=== PATIENT | female | born 1985 | race Hispanic/Latino ===

== ENCOUNTER 2016-06-21 09:24 | Emergency (ER) | payer MEDICAID, OTHER ==
--- NOTE | 2016-06-21 14:41 | Emergency Department Report ---
HPI - General Chief Complaint: Extremity Injury, Upper Time Seen by Provider: 06/21/16 14:41 - HPI HPI: Patient is a 31-year-old female who presents to ED complaining of throbbing/ aching/soreness type 6 out of 10 intensity, located to the right arm and shoulder area. Patient states she released her two-year old child with hand all the time. Patient denies any fall or trauma to the arm. Patient has full range of motion on right arm and neck. Patient denies fevers/chills/nausea/vomiting as chest pain/shortness of breath or dizziness or any other problems area and ED Past Medical Hx - Past Medical History Previous Medical History?: Yes Hx Hypertension: No Hx Congestive Heart Failure: No Hx Diabetes: No Hx Deep Vein Thrombosis: No Hx Renal Disease: No Hx Sickle Cell Disease: No Hx Seizures: No Hx Asthma: No Hx COPD: No Hx HIV: No Additional medical history: Anemia - Surgical History Past Surgical History?: Yes Additional Surgical History: C-sections X2, tonsils removed - Social History Smoking Status: Never Smoker Substance Use Type: None - Medications Home Medications: Home Medications Medication Instructions Recorded Confirmed Last Taken Type Ibuprofen [Motrin] 800 mg PO Q8HR PRN #30 tablet 06/21/16 Unknown Rx methOCARBAMOL [Robaxin TAB] 500 mg PO BID #16 tab 06/21/16 Unknown Rx ED Review of Systems ROS: Stated complaint: RUNNY NOSE/ARM PAIN Other details as noted in HPI Constitutional: denies: chills, fever Eyes: denies: eye pain, eye discharge, vision change ENT: denies: ear pain, throat pain Respiratory: denies: cough, shortness of breath, wheezing Cardiovascular: denies: chest pain, palpitations Endocrine: no symptoms reported Gastrointestinal: denies: abdominal pain, nausea, diarrhea Genitourinary: denies: urgency, dysuria, discharge Musculoskeletal: myalgia. denies: back pain, joint swelling, arthralgia Skin: denies: rash, lesions Neurological: denies: headache, weakness, paresthesias Psychiatric: denies: anxiety, depression Hematological/Lymphatic: denies: easy bleeding, easy bruising Physical Exam - Physical Exam Vital Signs: Vital Signs 06/21/16 09:39 Temperature 98.7 F Respiratory 22 Rate Blood Pressure 155/98 O2 Sat by Pulse 98 Oximetry Physical Exam: GENERAL: Alert and oriented x3, no apparent distress, Normal Gait, atraumatic. HEAD: Head is normocephalic and a-traumatic. EYES: Extra ocular muscles are intact. Pupils are equal, round, and reactive to light and accommodation. EARS: symetrical, atraumatic, non tender, ear canal clear and moderate cerumen, tympanic membrance non inflamed. gross auditory nml bilaterally. NOSE: Nose symetrical, Nontender,Nares appeared normal. MOUTH:Mouth is well hydrated and without lesions. Tonsils nonerythematous or swollen, Uvula midline, Tongue not elevated. Mucous membranes are moist. Posterior pharynx clear, no exudate or lesions. Patent airways. NECK: Supple. Non edematous, No carotid bruits. No lymphadenopathy or thyromegaly. Full ROM LUNGS: Symetrical with respiration, No wheezing, no rales or crackles, CTAB. HEART: S1, S2 present, regular rate and rhythm without murmur, no rubs, no gallops. ABDOMEN: No organomegaly was noted,Positive bowel sounds, soft, and non- distended. . Nontender to palpation on all Quadrants, NO CVA tenderness. EXTREMITIES/MUSCULOSKELETAL: No cyanosis, clubbing, rash, lesions or edema. Full ROM bilaterally. UE/LE Pulses 2+ bilaterally. LE and UE 5+ strength bilaterally. Tenderness to palpation of trapezius muscle. NEUROLOGIC: No focal Deficit, Cranial nerves II through XII are grossly intact. No loss of sensation, No facial droop, SKIN: Warm and dry, No lesions, No ulceration or induration present. ED Course Vital Signs 06/21/16 09:39 Temperature 98.7 F Respiratory 22 Rate Blood Pressure 155/98 O2 Sat by Pulse 98 Oximetry Critical care attestation.: If time is entered above; I have spent that time in minutes in the direct care of this critically ill patient, excluding procedure time. ED Disposition Clinical Impression: Myalgia, Strain of upper arm, right Disposition: DISCHARGED TO HOME OR SELFCARE Is pt being admited?: No Does the pt Need Aspirin: No Condition: Stable Instructions: Muscle Strain (ED), Heat Pack Application (ED) Prescriptions: Ibuprofen [Motrin] 800 mg PO Q8HR PRN #30 tablet PRN Reason: Pain methOCARBAMOL [Robaxin TAB] 500 mg PO BID #16 tab Referrals: PRIMARY CARE, [Primary Care Provider] - 3-5 Days [facility] [place]Note 3] [Outside] - 3-5 Days [facility] [Outside] - 3-5 Days [facility] [Outside] - 3-5 Days [facility] [Outside] - 3-5 Days Forms: Work/School Release Form(ED) Time of Disposition: 15:47
[2016-06-21] MEDS ORDERED: XYLOCAINE 1% MPF 5 mL INFILTRATI ONE (15:18)
[2016-06-21] MEDS ORDERED: ROCEPHIN IV ONE (15:18)
[2016-06-21 16:20] VITALS: BP 158/86
== END 2016-06-21 15:49 | disposition home or self-care (01) ==
LOC: ED 09:24
DX: S46.811A Strain of other muscles, fascia and tendons at shoulder and upper arm level, right arm, initial encounter (principal); D64.9 Anemia, unspecified; X58.XXXA Exposure to other specified factors, initial encounter; Y93.89 Activity, other specified; Y92.89 Other specified places as the place of occurrence of the external cause; Y99.8 Other external cause status
CPT/HCPCS: 99282

== ENCOUNTER 2017-07-24 15:46 | Emergency (ER) | payer SELFPAY ==
[2017-07-24 16:48] LABS: Basophils % (Auto) 0.2 % (0.0-1.8); Eosinophils # (Auto) 0.1 K/mm3 (0.0-0.4); Eosinophils % (Auto) 0.7 % (0.0-4.3); Hematocrit 38.5 % (30.3-42.9); Hemoglobin 12.7 gm/dl (10.1-14.3); Lymphocytes # (Auto) 1.4 K/mm3 (1.2-5.4); Mean Corpuscular HGB Conc 33 % (30-34); Mean Corpuscular Hemoglobin 27 pg (28-32); Mean Corpuscular Volume 81 fl (79-97); Monocytes # (Auto) 0.9 K/mm3 (0.0-0.8); Monocytes % (Auto) 9.2 % (0.0-7.3); Platelet Count 189 K/mm3 (140-440); Red Blood Count 4.76 M/mm3 (3.65-5.03); Red Cell Distribution Width 16.7 % (13.2-15.2)
[2017-07-24 17:02] LABS: Alanine Aminotransferase 15 units/L (7-56); Albumin 3.9 g/dL (3.9-5); BUN/Creatinine Ratio 11; Blood Urea Nitrogen 9 mg/dL (7-17); Calcium 8.8 mg/dL (8.4-10.2); Hemolysis Index 9; Lipase 22 units/L (13-60)
[2017-07-24 17:14] LABS: Bacteria,Urine 3+ /HPF (Negative); Bilirubin,Urine NEG (Negative); Blood,Urine NEG (Negative); Color,Urine Yellow (Yellow); Mucus,Urine FEW /HPF; Nitrite,Urine NEG (Negative); Protein,Urine <15 mg/dL mg/dL (Negative)
--- NOTE | 2017-07-24 23:24 | Emergency Department Report ---
HPI - General Chief Complaint: Abdominal Pain Time Seen by Provider: 07/24/17 23:00 - HPI HPI: Room 7 (1 of 3) The patient is a 32-year-old female presenting with chief complaint of abdominal pain and diarrhea. The patient states for the past 5 days she's had intermittent cramping and throbbing diffuse abdominal pain. The patient states for the past 2 days she has exhibited watery diarrhea in addition to chills. Patient denies any recent antibiotic use. Patient denies nausea/vomiting or fever. The patient is here with 2 other children who have the same symptoms. The patient's symptoms began first Location: Abdomen Duration: 5 days Quality: Cramping Severity: Moderate Modifying factors: [see above] Context: [see above] Mode of transportation: [not driving] ED Past Medical Hx - Past Medical History Previous Medical History?: Yes Additional medical history: Anemia, Vaginal delivery - Surgical History Past Surgical History?: Yes Additional Surgical History: C-sections X2, tonsils removed - Family History Family history: no significant - Social History Smoking Status: Current Some Day Smoker Substance Use Type: None - Medications Home Medications: Home Medications Medication Instructions Recorded Confirmed Last Taken Type Ibuprofen [Motrin] 800 mg PO Q8HR PRN #30 tablet 06/21/16 Unknown Rx methOCARBAMOL [Robaxin TAB] 500 mg PO BID #16 tab 06/21/16 Unknown Rx Ciprofloxacin HCl [Ciprofloxacin 500 mg PO BID #14 tablet 07/24/17 Unknown Rx TAB] Dicyclomine [Bentyl] 10 mg PO QID #20 capsule 07/24/17 Unknown Rx Diphenoxylate/Atropine [Lomotil] 2 tab PO QID PRN #20 tablet 07/24/17 Unknown Rx HYDROcodone/APAP 5-325 [[place] 1 - 2 each PO Q6HR PRN #14 tablet 07/24/17 Unknown Rx 5/325] ED Review of Systems ROS: Stated complaint: ABD PAIN Other details as noted in HPI Constitutional: chills. denies: fever Gastrointestinal: abdominal pain, diarrhea. denies: nausea, vomiting Physical Exam - Physical Exam Vital Signs: Vital Signs 07/24/17 16:17 Temperature 97.7 F Pulse Rate 111 H Respiratory 20 Rate Blood Pressure 123/87 O2 Sat by Pulse 99 Oximetry Vital Signs 07/24/17 07/24/17 16:17 23:44 Temperature 97.7 F 99 F Pulse Rate 111 H 95 H Respiratory 20 20 Rate Blood Pressure 123/87 Blood Pressure 116/82 [Left] O2 Sat by Pulse 99 99 Oximetry Physical Exam: GENERAL: The patient is well-developed well-nourished female sitting in chair not appearing to be in acute distress. [] HEENT: Normocephalic. Atraumatic. NECK: Supple. Trachea midline CHEST/LUNGS: Clear to auscultation. There is no respiratory distress noted. HEART/CARDIOVASCULAR: Regular. There is no tachycardia. There is no gallop rub or murmur. ABDOMEN: Abdomen is soft, nontender. Patient has normal bowel sounds. There is no abdominal distention. SKIN: There is no rash. There is no edema. There is no diaphoresis. NEURO: The patient is awake, alert, and oriented. The patient is cooperative. The patient has normal speech MUSCULOSKELETAL: There is no evidence of acute injury. ED Course Vital Signs 07/24/17 16:17 Temperature 97.7 F Pulse Rate 111 H Respiratory 20 Rate Blood Pressure 123/87 O2 Sat by Pulse 99 Oximetry ED Medical Decision Making - Lab Data Result diagrams: 07/24/17 16:29 07/24/17 16:29 Laboratory Tests 07/24/17 07/24/17 07/24/17 16:29 16:29 16:29 WBC 9.9 RBC 4.76 Hgb 12.7 Hct 38.5 MCV 81 MCH 27 L MCHC 33 RDW 16.7 H Plt Count 189 Lymph % (Auto) 14.0 [place] % (Auto) 9.2 H Eos % (Auto) 0.7 Baso % (Auto) 0.2 Lymph # 1.4 [place] # 0.9 H Eos # 0.1 Baso # 0.0 Seg Neutrophils % 75.9 H Seg Neutrophils # 7.5 Sodium 135 L Potassium 3.5 L Chloride 96.6 L Carbon Dioxide 25 Anion Gap 17 BUN 9 Creatinine 0.8 Estimated GFR > 60 BUN/Creatinine Ratio 11 Glucose 89 Calcium 8.8 Total Bilirubin 0.40 AST 11 ALT 15 Alkaline Phosphatase 92 Total Protein 7.0 Albumin 3.9 Albumin/Globulin Ratio 1.3 Lipase 22 HCG, Qual Negative Urine Color Urine Turbidity Urine pH Ur Specific [place] Urine Protein Urine Glucose (UA) Urine Ketones Urine Blood Urine Nitrite Urine Bilirubin Urine Urobilinogen Ur Leukocyte Esterase Urine WBC (Auto) Urine RBC (Auto) U Epithel Cells (Auto) Urine Bacteria (Auto) Urine Mucus 07/24/17 16:40 WBC RBC Hgb Hct MCV MCH MCHC RDW Plt Count Lymph % (Auto) [place] % (Auto) Eos % (Auto) Baso % (Auto) Lymph # [place] # Eos # Baso # Seg Neutrophils % Seg Neutrophils # Sodium Potassium Chloride Carbon Dioxide Anion Gap BUN Creatinine Estimated GFR BUN/Creatinine Ratio Glucose Calcium Total Bilirubin AST ALT Alkaline Phosphatase Total Protein Albumin Albumin/Globulin Ratio Lipase HCG, Qual Urine Color Yellow Urine Turbidity Clear Urine pH 6.0 Ur Specific [place] 1.021 Urine Protein <15 mg/dl Urine Glucose (UA) Neg Urine Ketones Neg Urine Blood Neg Urine Nitrite Neg Urine Bilirubin Neg Urine Urobilinogen 2.0 Ur Leukocyte Esterase Mod Urine WBC (Auto) 18.0 H Urine RBC (Auto) 4.0 U Epithel Cells (Auto) 24.0 H Urine Bacteria (Auto) 3+ Urine Mucus Few - Differential Diagnosis acute viral enteritis Critical care attestation.: If time is entered above; I have spent that time in minutes in the direct care of this critically ill patient, excluding procedure time. ED Disposition Clinical Impression: Viral enteritis, UTI (urinary tract infection), Diarrhea Disposition: TO HOME OR SELFCARE Is pt being admited?: No Does the pt Need Aspirin: No Condition: Stable Instructions: Gastroenteritis (ED), Abdominal Pain (ED) Additional Instructions: Return to the emergency department immediately should you develop worsening symptoms, fever, inability to tolerate food or liquid or any other concerns. Prescriptions: Ciprofloxacin HCl [Ciprofloxacin TAB] 500 mg PO BID #14 tablet Dicyclomine [Bentyl] 10 mg PO QID #20 capsule Diphenoxylate/Atropine [Lomotil] 2 tab PO QID PRN #20 tablet PRN Reason: Diarrhea HYDROcodone/APAP 5-325 [[place] 5/325] 1 - 2 each PO Q6HR PRN #14 tablet PRN Reason: Pain Referrals: PRIMARY CARE, [Primary Care Provider] - 3-5 Days DALTON MARRUFO MD [Staff Physician] - 3-5 Days (Dr. Marrufo is a parts sales counterperson. Please follow up with him for further evaluation) Time of Disposition: 23:51
[2017-07-25 02:39] VITALS: BP 132/77
== END 2017-07-25 02:40 | disposition home or self-care (01) ==
LOC: ED 15:46
DX: N39.0 Urinary tract infection, site not specified (principal); A08.39 Other viral enteritis; F17.200 Nicotine dependence, unspecified, uncomplicated
CPT/HCPCS: 36415; 80053; 81001; 83690; 84703; 85025; 99283

== ENCOUNTER 2020-10-06 04:23 | Inpatient (IN) | payer OTHER ==
[2020-10-06 05:20] LABS: Basophils % (Auto) 0.2 % (0.0-1.8); Eosinophils # (Auto) 0.2 K/mm3 (0.0-0.4); Eosinophils % (Auto) 1.1 % (0.0-4.3); Hemoglobin 8.7 gm/dl (10.1-14.3); Lymphocytes # (Auto) 2.1 K/mm3 (1.2-5.4); Lymphocytes % (Auto) 13.3 % (13.4-35.0); Mean Corpuscular HGB Conc 32 % (30-34); Monocytes # (Auto) 0.9 K/mm3 (0.0-0.8); Platelet Count 256 K/mm3 (140-440); Red Blood Count 3.89 M/mm3 (3.65-5.03); Red Cell Distribution Width 18.8 % (13.2-15.2)
[2020-10-06] MEDS ORDERED: OXYTOCIN 10 UNIT/1 ML INJ ONE (05:21)
[2020-10-06 05:22] LABS: Mean Corpuscular Volume 69 fl (79-97)
--- NOTE | 2020-10-06 05:28 | History and Physical Report ---
History of Present Illness Date of examination: 10/06/20 Date of admission: 10/06/20 04:24 Chief complaint: I am in labor History of present illness: Patient is a 35-year-old 9 para 7 A2 L7 with 1 set of twins who presents in active labor with no care. Patient is unsure of her LMP, she is also unsure of her estimated due date. She has not seen any medical personnel for the entirety of this . Per the patient's sister she has a possible negative blood type and thinks she supposed to get RhoGam during her pregnancies. She presents this morning completely dilated expecting a precipitous delivery. Past History Past Medical History: no pertinent history Past Surgical History: no surgical history Social history: single - Obstetrical History : 9 Para: 7 Spontaneous Abortions: 1 Number of Living Children: 7 Medications and Allergies Allergies Allergy/AdvReac Type Severity Reaction Status Date / Time No Known Allergies Allergy Verified 11/10/13 15:12 Home Medications Medication Instructions Recorded Confirmed Last Taken Type Ibuprofen [Motrin] 800 mg PO Q8HR PRN #30 tablet 06/21/16 Unknown Rx methOCARBAMOL [Robaxin TAB] 500 mg PO BID #16 tab 06/21/16 Unknown Rx Ciprofloxacin HCl [Ciprofloxacin 500 mg PO BID #14 tablet 07/24/17 Unknown Rx TAB] Dicyclomine [Bentyl] 20 mg PO QID #20 tablet 07/24/17 Unknown Rx Diphenoxylate/Atropine [Lomotil] 2 tab PO QID PRN #20 tablet 07/24/17 Unknown Rx HYDROcodone/APAP 5-325 [[place] 1 - 2 each PO Q6HR PRN #14 tablet 07/24/17 Unknown Rx 5/325] Review of Systems All systems: negative Genitourinary: leakage of fluid, pelvic pain, contractions - Vital Signs Vital signs: Vital Signs Pulse Pulse Ox 105 H 97 10/06/20 04:37 10/06/20 04:37 Temp Pulse Resp BP Pulse Ox 114 H 100 10/06/20 04:57 10/06/20 04:57 - Physical Exam Breasts: Cardiovascular: Regular rate, Normal S1, Normal S2 Lungs: Positive: Clear to auscultation, Normal air movement Abdomen: Positive: normal appearance, soft, normal bowel sounds. Negative: distention, tenderness Vulva: both: normal Vagina: Positive: normal moisture. Negative: discharge Cervix: Negative: lesion, discharge Uterus: Positive: normal size, normal contour Adnexa: both: normal Anus/Rectum: Positive: normal perianal skin, heme negative. Negative: rectal mass, hemorrhoids Extremities: Deep Tendon Reflex Grade: Normal +2 - Obstetrical Cervical Dilatation: 10 Cervical Effacement Percentage: 100 station: 1 Uterine Contraction Frequency (min): 3 Uterine Contraction Pattern: Regular Uterine Tone Measurement Phase: Contraction Results Result Diagrams: 10/06/20 04:30 Abnormal lab results 10/06/20 Range/Units 04:30 WBC 15.6 H (4.5-11.0) K/mm3 Hgb 8.7 L (10.1-14.3) gm/dl Hct 27.0 L (30.3-42.9) % MCV 69 L (79-97) fl MCH 22 L (28-32) pg RDW 18.8 H (13.2-15.2) % Lymph % (Auto) 13.3 L (13.4-35.0) % [place] # (Auto) 0.9 H (0.0-0.8) K/mm3 Seg Neutrophils % 79.4 H (40.0-70.0) % Seg Neutrophils # 12.4 H (1.8-7.7) K/mm3 All other labs normal. Assessment and Plan IUP of unknown gestational age but appears term, here in active labor. Will admit to labor and delivery. Will obtain UDS. NICU is aware. Anticipate .
--- NOTE | 2020-10-06 05:37 | Procedure Note ---
OB Delivery Note - Delivery Date of Delivery: 10/06/20 Surgeon: CROW JOHN Estimated blood loss: 300cc - Vaginal Delivery presentation: vertex Delivery position: OA Intrapartum events: no care, precipitous labor- <3hr Delivery induction: none Delivery monitor: external FHT, external uterine Route of delivery: Delivery placenta: spontaneous Delivery cord: 3 umbilical vessels Episiotomy: none Delivery laceration: none Anesthesia: none Delivery comments: Viable female delivered over intact perineum at 5:02 AM Apgars 8 and 9 weight 3782g/8 pounds 5 ounces. Infant has spontaneous cry. Cord was clamped and cut and was handed to the waiting NICU personnel. Placenta was delivered spontaneously and intact at 5:16 AM. There was no bleeding vaginally from the perineum. Patient tolerated procedure well. Excellent hemostasis.
[2020-10-06 05:42] LABS: Hepatitis C Virus Antibody Non-Reactive (NonReactive)
[2020-10-06] MEDS ORDERED: OXYTOCIN 10 UNIT/1 ML INJ IM ONE (06:09)
[2020-10-06 06:34] LABS: Bilirubin,Urine NEG (Negative); Blood,Urine SM (Negative); Color,Urine Yellow (Yellow); Mucus,Urine FEW /HPF; Protein,Urine <15 mg/dL mg/dL (Negative); WBC,Urine < 1.0 /HPF (0.0-6.0)
[2020-10-06 06:41] LABS: Amphetamine Screen,Urine PRESUMPTIVE POSITIVE; Benzodiazepines Screen,Urine PRESUMPTIVE NEGATIVE; Cannabinoid Screen,Urine PRESUMPTIVE NEGATIVE; Cocaine Screen,Urine PRESUMPTIVE NEGATIVE; Methadone Screen,Urine PRESUMPTIVE NEGATIVE; Opiate Screen,Urine PRESUMPTIVE NEGATIVE
[2020-10-06] MEDS ORDERED: ePHEDrine SULFATE 50 MG/1 ML INJ IV PRN (07:30)
[2020-10-06] MEDS ORDERED: LIDOCAINE (2%) 20 MG/1 ML VIAL 20 ML MDV INFILTRATI SCH (07:30)
[2020-10-06] MEDS ORDERED: LACTATED RINGERS 1,000 ML IV SCH (07:30)
[2020-10-06] MEDS ORDERED: diphenhydrAMINE 25 MG CAP PO PRN (08:00)
[2020-10-06] MEDS ORDERED: PROMETHAZINE 25 MG TAB PO PRN (08:00)
[2020-10-06] MEDS ORDERED: HYDROcodone/ACETAMINOPHEN 5-325 MG TAB PO PRN (08:00)
[2020-10-06] MEDS ORDERED: WITCH HAZEL/ GLYCERIN PAD TP PRN (08:00)
[2020-10-06] MEDS ORDERED: LANOLIN/ZINC/DIMETHICONE (LANSINOH) 7 GM TP PRN (08:00)
[2020-10-06] MEDS ORDERED: PROMETHAZINE 25 MG RECT SUPP PR PRN (08:00)
[2020-10-06] MEDS ORDERED: MINERAL OIL 30 ML ORAL LIQD PO PRN (08:00)
[2020-10-06] MEDS ORDERED: TERBUTALINE 1 MG/1 ML INJ SUB-Q PRN (08:00)
[2020-10-06] MEDS ORDERED: ONDANSETRON 4 MG/2 ML INJ IV PRN (08:00)
[2020-10-06] MEDS ORDERED: OXYTOCIN DRIP 30 UNITS/500 ML BAG IV SCH (08:00)
[2020-10-06] MEDS: PRENATAL VIT27-FE FUMARATE-FOLIC ACID VIT TAB PO SCH (09:49)
[2020-10-06] MEDS: DOCUSATE SODIUM 100 MG CAP PO SCH ×2 (09:49→22:03)
[2020-10-06] MEDS: IBUPROFEN 600 MG TAB PO SCH ×2 (09:49→16:04)
[2020-10-06 20:24] LABS: Hemoglobin 6.2 gm/dl (10.1-14.3)
[2020-10-06 20:48] LABS: Hematocrit 19.3 % (30.3-42.9)
[2020-10-06] MEDS ORDERED: MAGNESIUM HYDROXIDE (MOM) ORAL LIQD UDC PO PRN (22:00)
[2020-10-06] MEDS: FERROUS SULFATE 325 MG TAB PO SCH (22:03)
[2020-10-07] MEDS: IBUPROFEN 600 MG TAB PO SCH ×3 (02:21→21:00)
[2020-10-07] MEDS: FERROUS SULFATE 325 MG TAB PO SCH ×2 (09:45→22:30)
[2020-10-07] MEDS: DOCUSATE SODIUM 100 MG CAP PO SCH ×2 (09:45→22:30)
[2020-10-07] MEDS: PRENATAL VIT27-FE FUMARATE-FOLIC ACID VIT TAB PO SCH (09:45)
--- NOTE | 2020-10-07 16:08 | Progress Note ---
Assessment and Plan A: PPD#1 s/p at term Severe Anemia- declines transfusion No Care UDS positive for amphetamines Obesity P: Routine care Pt desires discharge tomorrow morning (at 48 hours) Subjective - Subjective Date of service: 10/07/20 Principal diagnosis: s/p at term, anemia, obesity, no care, amphetamine positive Interval history: Pt has no complaints and reports she feels fine. She declines blood transfusion and is anxious to go home. Patient reports: appetite normal, voiding normally, pain well controlled, ambulating normally [place]: doing well Objective - Vital Signs Latest vital signs: Vital Signs Temp Pulse Resp BP BP Pulse Ox 10/07/20 07:20 96.4 F L 98 H 17 135/65 99 10/07/20 02:21 20 10/07/20 00:00 98 F 79 16 120/78 10/06/20 21:00 98.1 F 85 20 115/50 100 10/06/20 16:44 99.2 F 96 H 20 131/83 100 Intake and Output 10/07/20 10/07/20 10/07/20 06:59 14:59 22:59 Intake Total 500 Output Total 600 Balance -100 Intake: Oral 200 Intake, Free Water 300 Output: Urine 600 Void 600 Other: Total, Intake Amount 200 Total, Output Amount 600 # Voids Void 1 - Exam Abdomen: Present: soft (obese ) Uterus: Present: fundal height below umbilicus Extremities: Present: normal - Labs Labs: Abnormal lab results 10/06/20 10/06/20 Range/Units 19:52 Unknown Hgb 6.2 L (10.1-14.3) gm/dl Hct 19.3 L* D (30.3-42.9) % Coronavirus (PCR) Positive A (Negative)
--- NOTE | 2020-10-07 16:17 | Discharge Summary ---
Providers - Providers Date of Admission: 10/06/20 04:24 Date of discharge: 10/07/20 Attending physician: CROW JOHN 10/07/20 07:44 Consult to Case Management [CONS] Routine Services Needed at Discharge: [place] Notified:: [id number] Additional Physician Instructions: UDS Positive amphetamines Primary care physician: MANAGER [employer]CR[facility]E Hospitalization Reason for admission: active labor Delivery: Procedure details: Please see delivery note. Episiotomy: none Laceration: none Other procedures: none complications: none Discharge diagnosis: IUP at term delivered baby: female Hospital course: Pt was admitted in active labor and went on to have a spontaneous vaginal delivery which she tolerated well. She developed acute on chronic blood loss anemia and declined blood transfusion. She was observed for 48 hours, then met discharge criteria. She may follow up in 4 wks for exam. Condition at discharge: Stable Disposition: DC-01 TO HOME OR SELFCARE - Discharge Diagnoses (1) Term of female Status: Acute (2) Active labor at term Status: Acute (3) Anemia complicating puerperium Status: Acute (4) Grand multipara Status: Acute (5) No care in current Status: Acute Qualifiers: Trimester: third trimester Qualified Code(s): O09.33 - Supervision of with insufficient care, third trimester Plan - Discharge Medications Prescriptions: Docusate Sodium [Colace] 100 mg PO BID PRN #60 capsule PRN Reason: Constipation Ferrous Sulfate [Feosol 325 MG tab] 325 mg PO TID #90 tablet Ibuprofen [Motrin] 800 mg PO Q8HR PRN #30 tablet PRN Reason: Pain, Moderate (4-6) - Provider Discharge Summary Activity: routine, no sex for 6 weeks, no heavy lifting 4 weeks, no strenuous exercise Diet: routine Instructions: routine Additional instructions: [] Smoking cessation referral if applicable(refer to patient education folder for contact #) [] Refer to [facility]'s [facility] Booklet Call your doctor immediately for: * Fever > 100.5 * Heavy vaginal bleeding ( >1 pad per hour) * Severe persistent headache * Shortness of breath * Reddened, hot, painful area to leg or breast * Drainage or odor from incision. * Keep incision clean and dry at all times and follow doctor's instructions regarding bathing/showering - Follow up plan Follow up: PRIMARY CARE, [Primary Care Provider] - 7 Days CROW JOHN MD [Staff Physician] - 11/03/20 (Please schedule your appt )
[2020-10-08] MEDS: IBUPROFEN 600 MG TAB PO SCH ×2 (06:20→12:25)
[2020-10-08] MEDS: FERROUS SULFATE 325 MG TAB PO SCH (10:45)
[2020-10-08] MEDS: DOCUSATE SODIUM 100 MG CAP PO SCH (10:45)
[2020-10-08] MEDS: PRENATAL VIT27-FE FUMARATE-FOLIC ACID VIT TAB PO SCH (10:45)
[2020-10-08 16:52] VITALS: BP 154/85
== END 2020-10-08 16:00 | disposition home or self-care (01) | DRG 806 ==
LOC: TRG 04:23 → LD 04:24 → OB 08:24
PROVIDERS: ADMIT Obstetrics & Gynecology; ATTEND Obstetrics & Gynecology
PROC: 10E0XZZ Delivery of Products of Conception, External Approach (ICD-10-PCS; principal; 2020-10-06)
PROC: 30233S1 Transfusion of Nonautologous Globulin into Peripheral Vein, Percutaneous Approach (ICD-10-PCS; 2020-10-06)
DX: O62.3 Precipitate labor (principal); D62 Acute posthemorrhagic anemia; Z37.0 Single live birth; O99.324 Drug use complicating childbirth; Z3A.00 Weeks of gestation of pregnancy not specified; O90.81 Anemia of the puerperium; O09.33 Supervision of pregnancy with insufficient antenatal care, third trimester; O99.214 Obesity complicating childbirth; F15.90 Other stimulant use, unspecified, uncomplicated; Z3A.39 39 weeks gestation of pregnancy; Z20.822 Contact with and (suspected) exposure to COVID-19
CPT/HCPCS: 36415; 59025; 80307; 81001; 85014; 85018; 85025; 85027; 85460; 85461; 86592; 86706; 86762; 86803; 86850; 86900; 86901; 87806; 88307; G0378; J2590; J2790; U0003